=== PATIENT | male | born 1975 | race American Indian/Alaskan Native ===

== ENCOUNTER 2018-04-03 06:26 | Emergency (ER) | payer BC ==
[2018-04-03 06:43] VITALS: BMI 31.3
[2018-04-03] MEDS ORDERED: Lidocaine 2% Inj (20ml) IJ STA (07:18)
--- NOTE | 2018-04-03 07:28 | ED PDOC ---
Arrival/HPI - General Historian: Patient - History of Present Illness Narrative History of Present Illness (Text): 04/03/18 07:25 Patient is a 42 year old male with no significant past medical history who presented to the emergency department for lip laceration. Patient states that he went to the bathroom at night and fell forward where his tooth punctured his lip. He denies any other issues. Patient states that his tetanus is up to date. Time/Duration: Prior to Arrival Symptom Onset: Sudden Symptom Course: Unchanged Severity Level: 1, Mild <Ellen Bass - Last Filed: 04/03/18 09:22> <Clovis Fonseca - Last Filed: 04/03/18 11:12> - General Chief Complaint: Abnormal Skin Integrity Time Seen by Provider: 04/03/18 07:03 Past Medical History - Provider Review Nursing Documentation Reviewed: Yes - Past History Past History: No Previous - Infectious Disease Hx of Infectious Diseases: None - Tetanus Immunization Tetanus Immunization: Up to Date - Psychiatric Hx Substance Use: No - Anesthesia Hx Anesthesia: No Hx Anesthesia Reactions: No Hx Malignant Hyperthermia: No <Ellen Bass - Last Filed: 04/03/18 09:22> Family/Social History - Physician Review Nursing Documentation Reviewed: Yes Family/Social History: Diabetes Smoking Status: Never Smoked Hx Alcohol Use: Yes Frequency of alcohol use: Socially Hx Substance Use: No <Ellen Bass - Last Filed: 04/03/18 09:22> Allergies/Home Meds <Ellen Bass - Last Filed: 04/03/18 09:22> <Clovis Fonseca - Last Filed: 04/03/18 11:12> Allergies/Adverse Reactions: Allergies No Known Allergies Allergy (Verified 04/03/18 06:46) Home Medications: Home Meds Medication Instructions Recorded Confirmed RX: No Known Home Med 04/03/18 04/03/18 Review of Systems - Physician Review All systems were reviewed & negative as marked: Yes - Review of Systems Constitutional: Normal. absent: Fatigue Eyes: Normal. absent: Vision Changes ENT: Normal Respiratory: Normal. absent: SOB, Cough Cardiovascular: Normal. absent: Chest Pain Gastrointestinal: Normal. absent: Abdominal Pain Genitourinary Male: Normal Skin: Laceration Neurological: Normal. absent: Headache, Dizziness <Ellen Bass - Last Filed: 04/03/18 09:22> Physical Exam Vital Signs Reviewed: Yes Vital Signs Temp Pulse Resp BP Pulse Ox 04/03/18 06:43 98.8 F 100 H 20 133/76 99 Temperature: Afebrile Blood Pressure: Normal Pulse: Regular Respiratory Rate: Normal Appearance: Positive for: Well-Appearing, Non-Toxic Pain Distress: Mild Mental Status: Positive for: Alert and Oriented X 3 - Systems Exam Head: Present: Atraumatic, Normocephalic Pupils: Present: PERRL Extroacular Muscles: Present: EOMI Conjunctiva: Present: Normal Mouth: Present: Moist Mucous Membranes, Other (2cm deep laceration of the inner lower lip, 1cm linear laceration of the outer lower lip). No: Normal Teeth (Right central incisior chipped, root in place) Neck: Present: Normal Range of Motion Respiratory/Chest: Present: Good Air Exchange Cardiovascular: Present: Regular Rate and Rhythm <Ellen Bass - Last Filed: 04/03/18 09:22> Vital Signs Temp Pulse Resp BP Pulse Ox 04/03/18 07:15 98.4 F 78 17 131/74 96 04/03/18 06:43 98.8 F 100 H 20 133/76 99 <Clovis Fonseca - Last Filed: 04/03/18 11:12> Medical Decision Making ED Course and Treatment: 04/03/18 07:32 Patient examined at the bedside. Will repair lip laceration. Patient agreeable. 04/03/18 09:08 Lip laceration repaired. Patient tolerated the procedure well. Patient instructed to return on Thursday04/09/18 to have sutures removed. - Medication Orders Current Medication Orders: Discontinued Medications Lidocaine HCl (Lidocaine 2% 20ml Vial) 10 ml IJ ONCE STA Stop: 04/03/18 07:19 - Procedure PROCEDURE NOTE (Text): 04/03/18 09:16 Laceration repair: Wound was cleaned and irrigated with normal saline. 2 cc of 2% lidocaine was injected into the wound. For the 2.5cm inner lip laceration, 3 interrupted sutures of 6-0 Vicryl was used for the deep submucosal closure. 5 interrupted sutures of 6-0 prolene was used for superficial submucosal closure with anatomic reapproximation. For the 1cm outer lip laceration, 3 interrupted sutures of 6-0 prolene was used with anatomic reapproximation. <Ellen Bass - Last Filed: 04/03/18 09:22> ED Course and Treatment: 04/03/18 08:39 Seen and examined with resident. 42 year old gender presents with lip laceration. On exam, lower lip through and through laceration. Follow up PMD for suture removal and private dentist. - Medication Orders Current Medication Orders: Discontinued Medications Lidocaine HCl (Lidocaine 2% 20ml Vial) 10 ml IJ ONCE STA Stop: 04/03/18 07:19 <Clovis Fonseca - Last Filed: 04/03/18 11:12> - PA / CRIME SCENE TECHNICIAN / Resident Statement MD/DO has reviewed & agrees with the documentation as recorded. MD/DO has examined the patient and agrees with the treatment plan. - Scribe Statement The provider has reviewed the documentation as recorded by the Jethroibhesham Estrada All medical record entries made by the Scribe were at my direction and personally dictated by me. I have reviewed the chart and agree that the record accurately reflects my personal performance of the history, physical exam, medical decision making, and the department course for this patient. I have also personally directed, reviewed, and agree with the discharge instructions and disposition. <Clovis Fonseca - Last Filed: 04/03/18 11:12> Disposition/Present on Arrival - Present on Arrival Any Indicators Present on Arrival: No History of DVT/PE: No History of Uncontrolled Diabetes: No Urinary Catheter: No History of Decub. Ulcer: No History Surgical Site Infection Following: None - Disposition Have Diagnosis and Disposition been Completed?: Yes Disposition Time: 09:09 Patient Plan: Discharge <Ellen Bass - Last Filed: 04/03/18 09:22> <Clovis Fonseca - Last Filed: 04/03/18 11:12> - Disposition Diagnosis: Laceration of lip Disposition: HOME/ ROUTINE Condition: GOOD Discharge Instructions (ExitCare): Laceration Repair With Stitches (DC) Additional Instructions: - Patient to return Monday 04/09 for suture removal - F/U with PMD outpatient Referrals: Hannah Jiang, [Primary Care Provider] - Follow up with primary Forms: Meetup (Turkish)
[2018-04-03 09:29] VITALS: BP 126/53; PULSE 75; RESP 20; TEMP 98; O2SAT 99
== END 2018-04-03 09:31 | disposition home or self-care (01) ==
LOC: ED 06:26
DX: S01.511A Laceration without foreign body of lip, initial encounter (principal); W01.0XXA Fall on same level from slipping, tripping and stumbling without subsequent striking against object, initial encounter; Y92.002 Bathroom of unspecified non-institutional (private) residence as the place of occurrence of the external cause